=== PATIENT | female | born 1950 | race Caucasian/White ===

== ENCOUNTER 2017-11-05 06:59 | Day surgery (SDC) | payer MEDICAID ==
--- NOTE | 2018-01-02 11:43 | PROCN ---
DATE OF PROCEDURE: 11/05/2017 INDICATION: Recurrent dizziness. PROCEDURE: Tilt-table test. DESCRIPTION OF PROCEDURE: The patient was put on the tilt table and the baseline blood pressure and heart rate were taken. The tilt table was angled at 30 degrees for 5 minutes and 60 degrees for 20 minutes. The patient had a 40 mmHg drop in blood pressure and 11 beats per minute increase in heart rate. The changes in blood pressure and heart rate were slow. IMPRESSION: Appropriate heart rate and blood pressure response to the tilt-table test. The patient was asymptomatic throughout the test. Janice Vasquez MD
== END 2017-11-05 09:02 | disposition home or self-care (01) ==
LOC: C.CATHLAB 06:59
PROVIDERS: ATTEND Internal Medicine
DX: R42 Dizziness and giddiness (principal); R00.2 Palpitations; E11.9 Type 2 diabetes mellitus without complications; Z79.84 Long term (current) use of oral hypoglycemic drugs